=== PATIENT | male | born 1950 | race Caucasian/White ===

== ENCOUNTER 2017-08-21 09:48 | Outpatient (CLI) | payer MEDICARE ==
--- NOTE | 2017-08-21 10:15 | RAD ---
PA AND LATERAL CHEST: History: Productive cough. FINDINGS: Heart size and mediastinum are within normal limits. The lungs are clear of infiltrates. No significa nt bony findings. IMPRESSION: No active intrathoracic disease. POS: [facility]
== END 2017-08-21 09:49 | disposition home or self-care (01) ==
LOC: SCSRAD 09:48
PROVIDERS: ATTEND Family Medicine
DX: R05 Cough (principal)
CPT/HCPCS: 71046

== ENCOUNTER 2024-01-01 09:11 | Day surgery (SDC) | payer MEDICARE ==
[2024-01-01] MEDS ORDERED: Acetaminophen 500 MG TAB ONE (09:58)
[2024-01-01] MEDS ORDERED: diphenhydrAMINE 25 MG CAP ONE (09:58)
[2024-01-01] MEDS: Acetaminophen 500 MG TAB PO SCH (10:00)
[2024-01-01] MEDS: diphenhydrAMINE 25 MG CAP PO SCH (10:01)
[2024-01-01 12:53] VITALS: BP 126/60; TEMP 97.8
== END 2024-01-01 12:54 | disposition home or self-care (01) ==
LOC: ONC/OP 09:11
PROVIDERS: ATTEND Internal Medicine Hematology & Oncology
DX: D64.9 Anemia, unspecified (principal); D69.6 Thrombocytopenia, unspecified; Z88.8 Allergy status to other drugs, medicaments and biological substances
CPT/HCPCS: 36430; 80076; 86850; 86900; 86901; 86920; P9016